=== PATIENT | male | born 1935 | race Caucasian/White ===

== ENCOUNTER 2016-04-05 09:19 | Emergency (ER) | payer MEDICARE, OTHER ==
[2016-04-05] MEDS ORDERED: HYDROmorphone HCL 1 MG/ML DISP.SYRIN IM ONE (10:01)
--- NOTE | 2016-04-05 10:13 | ERNOTE ---
Upper Extremity HPI - Narrative Date of Service: 04/05/16 - General Extremities Pain Location: shoulder: left Time Seen by Provider: 04/05/16 09:56 Source: patient Exam Limitations: no limitations - Immun/Allergies/Home Medications Immunizations: IMMUNIZATION HX Immunizations Up to Date Yes History of Influenza Vaccine No Hx Pneumococcal Vaccination Yes Allergies/Adverse Reactions: Allergies Allergy/AdvReac Type Severity Reaction Status Date / Time clindamycin AdvReac Mild GI UPSET Verified 04/05/16 09:51 Penicillins AdvReac Mild Hives Verified 04/05/16 09:51 Home Medications: HOME MEDICATIONS Aspirin [Aspirin Enteric Coated] 81 mg PO DAILY 10/19/13 [Last Taken Unknown] Metoprolol Succinate [Toprol Xl] 50 mg PO DAILY 10/19/13 [Last Taken 01/21/14] Pravastatin Sodium [Pravachol] 40 mg PO HS 10/19/13 [Last Taken 01/20/14] Trandolapril [Mavik] 3 mg PO DAILY 12/27/13 [Last Taken 01/21/14] HYDROcodone/ACETAMINOPHEN [Lincoln 5-325] 1 each PO Q3H PRN #50 tablet 01/22/14 [ Last Taken Unknown] traMADol HCL [Ultram] 50 - 100 mg PO BID PRN #60 tablet 01/22/14 [Last Taken Unknown] Atorvastatin Calcium 09/13/14 [Last Taken Unknown] Clopidogrel Bisulfate [Plavix] 09/13/14 [Last Taken Unknown] Cyclobenzaprine HCl 09/13/14 [Last Taken Unknown] Lisinopril [Zestril] BID 09/13/14 [Last Taken Unknown] Metoprolol Succinate 09/13/14 [Last Taken Unknown] Tylenol 09/13/14 [Last Taken Unknown] - History of Present Illness Narrative: Pt. comes in with c/o L shoulder pain and swelling that started at 0700. Pt. denies any rescent injury but states that this happened previously and resolved spontaneously. Pt. denies any SOB, CP, NVD, but does state that he has decreased ROM with any movement. Pt. states that he took Tylenol, Ibuprofen, and a Lincoln without relief. Review of Systems - Review of Systems Constitutional: Present: no symptoms reported. Absent: recent illness, fever, chills, malaise EYE: Present: no symptoms reported ENT: Present: no symptoms reported Respiratory: Present: no symptoms reported. Absent: shortness of breath, cough , wheezing Cardiology: Present: no symptoms reported. Absent: chest pain, palpitations, edema Gastrointestinal/Abdominal: Present: no symptoms reported. Absent: nausea, vomiting, diarrhea Genitourinary: Present: no symptoms reported Musculoskeletal: Present: joint pain - L shoulder. Absent: back pain Skin: Present: no symptoms reported Neurological: Present: no symptoms reported. Absent: headache, dizziness/light- headedness, numbness, tingling All Other Systems: All systems neg except as marked - Patient's Past Medical History Patient History - Medical: No pertinent hx Patient History - Cancer: No Hx of Cancer Patient History - Surgical Procedures: Total Hip Replacement, Total Knee Replacement - Social History Living Situations: home Smoking Status: Former smoker Alcohol Use: occasionally Drug Use: none Physical Exam - Physical Exam General Appearance: Present: wd/wn, alert, no apparent distress Eye Exam: Normal inspection: bilateral, PERRL: bilateral, EOMI: bilateral Ears, Nose, Throat: Present: normal ENT inspection, hearing grossly normal, normal pharynx Neck: Present: normal inspection, nontender. Absent: lymphadenopathy (R), lymphadenopathy (L) Respiratory: Present: no respiratory distress, normal breath sounds, no accessory muscle use, chest nontender, lungs clear Cardiovascular/Chest: Present: regular rate, rhythm, no murmur, normal peripheral pulses Gastrointestinal/Abdominal: Present: normal bowel sounds, nontender, nondistended, no organomegaly Back Exam: Present: normal inspection, normal range of motion, no CVA tenderness , no vertebral tenderness Extremity Exam: Present: decreased range of motion, joint swelling - L anteriolateral shoulder, other - bruising L anterior shoulder Neurological Exam: Present: alert, oriented, normal mood/affect, no motor/ sensory deficits Skin Exam: Present: normal color, warm/dry. Absent: pallor, skin rash ED Progress - Results and Orders Patient's Lab Results:: I have reviewed the patient's lab results. - Vital Signs Patient's Vital Signs:: I have reviewed the patient's vital signs. 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 - Progress/Reassessment Chief Complaint: Shoulder Injury/Pain Departure Clinical Impression: Avascular necrosis, Avulsion fracture - Departure Disposition: Home self-care Condition: Good Instructions: Avulsion Fracture of the Hand, Avascular Necrosis Additional Instructions: Please follow up with Dr Moat and take 1000mg of Tylenol every six hours and continue Lincoln as prescribed. Keep sling on at all times. Referrals: Miles Mota MD [Primary Care Provider] -
[2016-04-05] MEDS ORDERED: HYDROmorphone HCL 1 MG/ML DISP.SYRIN ONE (10:20)
[2016-04-05 10:22] LABS: Hematocrit 43.8 % (42.0-52.0); Hemoglobin 14.9 gm/dL (13.5-18.0); Mean Corpuscular Hemoglobin 32.3 pg (27-31); Mean Platelet Volume 9.8 fl (6.0-9.5); Neutrophil # 9.7 K/mm3 (1.3-6.0); Neutrophil % 84.5 % (42-75.0); Platelet Count 260 K/mm3 (150-450); Red Blood Count 4.61 M/mm3 (4.7-6.0); Red Cell Distribution Width 13.8 % (11.5-14.0); White Blood Count 11.6 K/mm3 (4.0-10.5)
[2016-04-05 10:31] LABS: Prothrombin Time (Patient) 11.6 Seconds (9.4-11.4)
[2016-04-05 10:32] LABS: INR 1.12 INR (0.90-1.10)
[2016-04-05 10:49] VITALS: BP 146/68
== END 2016-04-05 11:31 | disposition home or self-care (01) ==
LOC: ER 09:19
DX: M87.9 Osteonecrosis, unspecified (principal); S42.122A Displaced fracture of acromial process, left shoulder, initial encounter for closed fracture; Z87.891 Personal history of nicotine dependence; Z96.649 Presence of unspecified artificial hip joint; Z96.659 Presence of unspecified artificial knee joint